=== PATIENT | female | born 1990 | race Two or more races ===

== ENCOUNTER 2019-12-10 20:30 | Emergency (ER) | payer MEDICAID ==
[~2019-12-10] VITALS: Ht 154.9 cm; Wt 85.0 kg
[2019-12-10] MEDS ORDERED: PERTUSS(ACELL),DIPH,TET VAC/PF 0.5 ML VIAL IM ONE (21:00)
[2019-12-10] MEDS ORDERED: SILVER SULFADIAZINE 1% 25 GM CREAM TP ONE (21:00)
[2019-12-10 21:06] VITALS: BP 129/82
== END 2019-12-10 21:15 | disposition home or self-care (01) ==
LOC: EMS 20:31
DX: T21.22XA Burn of second degree of abdominal wall, initial encounter (principal); X08.8XXA Exposure to other specified smoke, fire and flames, initial encounter; Y93.89 Activity, other specified; Y92.89 Other specified places as the place of occurrence of the external cause; Y99.8 Other external cause status
CPT/HCPCS: 16000